=== PATIENT | male | born 1965 | race Hispanic/Latino ===

== ENCOUNTER 2021-03-16 23:55 | Inpatient (IN) | payer OTHER ==
[2021-03-15 23:00] VITALS: BP 144/80
[~2021-03-16] VITALS: Ht 167.6 cm; Wt 113.0 kg
[2021-03-17] VITALS (19 sets, daily range): BP systolic 99–178; BP diastolic 54–95
[2021-03-17 00:59] LABS: HEMATOCRIT 47.3 % (39.0-50.0); HEMOGLOBIN 15.3 g/dl (14.0-18.0); IMMATURE GRANULOCYTES 1.1 % (0.0-5.0); MEAN CELL VOLUME 81.1 fL CALC (80.0-100.0); MEAN CORPUSCULAR HGB 26.2 pG CALC (26.0-32.0); MEAN CORPUSCULAR HGB CONC 32.3 g/dL CAL (32.0-36.0); NEUT# 8.89 thou/uL (1.82-7.42); RED BLOOD COUNT 5.83 mill/uL (4.70-6.10); RED CELL DISTRI WIDTH 14.3 % (11.5-15.5)
[2021-03-17 01:12] LABS: ALBUMIN 3.5 g/dL (3.2-5.0); ALKALINE PHOSPHATASE 83 u/l (38-126); ANION GAP 15 (6-22 (CALC)); BILIRUBIN, TOTAL 0.5 mg/dL (0.0-1.4); BUN 14 mg/dL (9-20); BUN/CREATININE RATIO 19 (12-20 (CALC)); CARBON DIOXIDE 27 mmol/l (22-30); CHLORIDE 91 mmol/l (95-108); CREATININE 0.7 mg/dL (0.7-1.3); GFR > 60 ML/MIN (>=60 (CALC)); GFR FOR AFR.AMER. > 60 ML/MIN (>=60 (CALC)); LIPASE 49 u/l (23-300); POTASSIUM 4.3 mmol/l (3.5-5.1); SGOT/AST 51 u/l (17-59); SODIUM 129 mmol/l (137-146); TOTAL PROTEIN 6.4 g/dL (6.3-8.2)
[2021-03-17 01:20] LABS: D-DIMER 1.11 mg/L (0.19-0.60)
[2021-03-17 01:30] LABS: ACT PARTIAL THROMBO TIME 27.4 SECONDS (20.0-32.5); INTERNATIONAL NORMALIZED RATIO 1.1 RATIO (0.7-1.3); PROTHROMBIN TIME 11.2 SECONDS (9.0-12.5)
[2021-03-17] MEDS ORDERED: GLIPIZIDE10 M2 PO (11:47)
[2021-03-17] MEDS ORDERED: METFORMIN500 M2 PO (11:47)
[2021-03-17] MEDS ORDERED: LISINOP/HCTZ1 TA2 PO (11:48)
[2021-03-17] MEDS ORDERED: ATORVASTATIN CA80 MG PO (11:49)
[2021-03-17] MEDS ORDERED: NORVASC5 M1 PO (11:50)
[2021-03-17] MEDS ORDERED: JARDIANCE10 MG PO (11:51)
[2021-03-17] MEDS ORDERED: OZEMPIC2 MG/1.5 M SC (11:53)
[2021-03-18] VITALS (24 sets, daily range): BP systolic 113–149; BP diastolic 67–83
[2021-03-18 06:40] LABS: IMMATURE GRANULOCYTES 0.9 % (0.0-5.0); MEAN CELL VOLUME 82.6 fL CALC (80.0-100.0); MEAN CORPUSCULAR HGB 26.3 pG CALC (26.0-32.0); MEAN CORPUSCULAR HGB CONC 31.8 g/dL CAL (32.0-36.0); NEUT# 9.1 thou/uL (1.82-7.42); RED BLOOD COUNT 5.33 mill/uL (4.70-6.10); RED CELL DISTRI WIDTH 14.6 % (11.5-15.5)
[2021-03-18 07:29] LABS: ANION GAP 12 (6-22 (CALC)); BUN 14 mg/dL (9-20); BUN/CREATININE RATIO 33 (12-20 (CALC)); CARBON DIOXIDE 26 mmol/l (22-30); CHLORIDE 100 mmol/l (95-108); CREATININE 0.4 mg/dL (0.7-1.3); GFR > 60 ML/MIN (>=60 (CALC)); GFR FOR AFR.AMER. > 60 ML/MIN (>=60 (CALC)); POTASSIUM 4.5 mmol/l (3.5-5.1); SODIUM 133 mmol/l (137-146)
[2021-03-18 11:54] LABS: C-REACTIVE PROTEIN 18.2 mg/dL (0-0.9)
[2021-03-19] VITALS (22 sets, daily range): BP systolic 121–176; BP diastolic 63–96
[2021-03-19 05:29] LABS: HEMATOCRIT 44.3 % (39.0-50.0); HEMOGLOBIN 13.9 g/dl (14.0-18.0); IMMATURE GRANULOCYTES 0.2 % (0.0-5.0); MEAN CELL VOLUME 83.4 fL CALC (80.0-100.0); MEAN CORPUSCULAR HGB 26.2 pG CALC (26.0-32.0); MEAN CORPUSCULAR HGB CONC 31.4 g/dL CAL (32.0-36.0); NEUT# 7.51 thou/uL (1.82-7.42); RED BLOOD COUNT 5.31 mill/uL (4.70-6.10); RED CELL DISTRI WIDTH 14.4 % (11.5-15.5)
[2021-03-19 06:18] LABS: ALKALINE PHOSPHATASE 78 u/l (38-126); ANION GAP 11 (6-22 (CALC)); BILIRUBIN, TOTAL 0.4 mg/dL (0.0-1.4); BUN 13 mg/dL (9-20); BUN/CREATININE RATIO 31 (12-20 (CALC)); CARBON DIOXIDE 26 mmol/l (22-30); CHLORIDE 102 mmol/l (95-108); CREATININE 0.4 mg/dL (0.7-1.3); GFR > 60 ML/MIN (>=60 (CALC)); GFR FOR AFR.AMER. > 60 ML/MIN (>=60 (CALC)); POTASSIUM 4.1 mmol/l (3.5-5.1); SGOT/AST 45 u/l (17-59); SODIUM 135 mmol/l (137-146); TOTAL PROTEIN 5.5 g/dL (6.3-8.2)
[2021-03-19 06:31] LABS: ALBUMIN 2.7 g/dL (3.2-5.0)
[2021-03-20] VITALS (11 sets, daily range): BP systolic 135–169; BP diastolic 63–109
[2021-03-20 06:44] LABS: HEMATOCRIT 45.8 % (39.0-50.0); HEMOGLOBIN 14.6 g/dl (14.0-18.0); IMMATURE GRANULOCYTES 0.6 % (0.0-5.0); MEAN CELL VOLUME 82.4 fL CALC (80.0-100.0); MEAN CORPUSCULAR HGB 26.3 pG CALC (26.0-32.0); MEAN CORPUSCULAR HGB CONC 31.9 g/dL CAL (32.0-36.0); NEUT# 10.31 thou/uL (1.82-7.42); RED BLOOD COUNT 5.56 mill/uL (4.70-6.10); RED CELL DISTRI WIDTH 14.3 % (11.5-15.5)
[2021-03-20 06:55] LABS: ALBUMIN 3.2 g/dL (3.2-5.0); ALKALINE PHOSPHATASE 109 u/l (38-126); ANION GAP 15 (6-22 (CALC)); BUN 10 mg/dL (9-20); BUN/CREATININE RATIO 25 (12-20 (CALC)); CARBON DIOXIDE 25 mmol/l (22-30); CHLORIDE 98 mmol/l (95-108); CREATININE 0.4 mg/dL (0.7-1.3); GFR > 60 ML/MIN (>=60 (CALC)); GFR FOR AFR.AMER. > 60 ML/MIN (>=60 (CALC)); POTASSIUM 3.8 mmol/l (3.5-5.1); SGOT/AST 46 u/l (17-59); SODIUM 134 mmol/l (137-146)
[2021-03-20 06:56] LABS: BILIRUBIN, TOTAL 0.7 mg/dL (0.0-1.4)
[2021-03-20 07:12] LABS: C-REACTIVE PROTEIN 15.7 mg/dL (0-0.9)
== END 2021-03-20 22:00 | disposition expired | DRG 177 ==
LOC: ED 23:55 → ICU 03-17 03:11 → ED-I 03-17 03:11 → ICU 03-17 14:00
PROVIDERS: ADMIT Hospitalist; ATTEND Hospitalist
PROC: 5A09457 Assistance with Respiratory Ventilation, 24-96 Consecutive Hours, Continuous Positive Airway Pressure (ICD-10-PCS; principal; 2021-03-17)
PROC: XW033E5 Introduction of Remdesivir Anti-infective into Peripheral Vein, Percutaneous Approach, New Technology Group 5 (ICD-10-PCS; 2021-03-17)
PROC: 0BH17EZ Insertion of Endotracheal Airway into Trachea, Via Natural or Artificial Opening (ICD-10-PCS; 2021-03-20)
PROC: 5A12012 Performance of Cardiac Output, Single, Manual (ICD-10-PCS; 2021-03-20)
DX: U07.1 COVID-19 (principal); J12.82 Pneumonia due to coronavirus disease 2019; J96.01 Acute respiratory failure with hypoxia; E87.2 Acidosis; E11.65 Type 2 diabetes mellitus with hyperglycemia; I10 Essential (primary) hypertension; E78.5 Hyperlipidemia, unspecified; Z79.84 Long term (current) use of oral hypoglycemic drugs
CPT/HCPCS: J0282; J1650; J2060; Q9967